=== PATIENT | male | born 1975 | race Two or more races ===

== ENCOUNTER 2020-02-10 18:03 | Emergency (ER) | payer OTHER ==
[~2020-02-10] VITALS: Ht 170.2 cm; Wt 77.1 kg
[2020-02-10] MEDS ORDERED: LIDOCAINE 1% HCL (LOCAL ANESTH.) INJ 20ML MDV IJ ONE ×2 (20:45→23:45)
[2020-02-10 21:16] VITALS: BP 156/88
[2020-02-10] MEDS ORDERED: ACETAMINOPHEN 500 MG TAB PO ONE (21:30)
[2020-02-10] MEDS ORDERED: IBUPROFEN 800 MG TAB PO ONE (21:30)
[2020-02-10] MEDS ORDERED: TETANUS-DIPTH-ACEL PERTUSSIS 0.5ML SYR Tdap IM ONE (21:30)
== END 2020-02-11 01:24 | disposition home or self-care (01) ==
LOC: ER 18:03
DX: S09.90XA Unspecified injury of head, initial encounter (principal); S01.81XA Laceration without foreign body of other part of head, initial encounter; W19.XXXA Unspecified fall, initial encounter; Y93.89 Activity, other specified; Y92.89 Other specified places as the place of occurrence of the external cause; Y99.8 Other external cause status
CPT/HCPCS: 12015; 70450; 90471; 90715; 99285; J2001